=== PATIENT | male | born 1965 | race Caucasian/White ===

== ENCOUNTER → 2017-05-08 | Outpatient (CLI) | payer OTHER ==
[~2017-05-08] MED LIST: AMITRIPTYLINE H50 M1 PO; ASPIRIN E.C. 8181 MG PO; B-12 100 MCG PO; CRESTOR 10MG10 MG PO; FIORICET 325 MG1 TA1 PO; FLEXERIL 1010 MG/TAB PO; FLEXERIL10 MG PO; INDERAL 10MG10 MG PO; LIPITOR 10MG10 MG PO; MULTIPLE VITAMI1 CAP PO; NO HOME MEDICATIONS; NORCO 325 MG-51 TAB PO; NORCO 325 MG-7.1 TAB PO; PLAVIX 75MG TAB75 MG PO; PREDNISONE20 MG PO
== END ==
LOC: BHSO 13:45
DX: F41.1 Generalized anxiety disorder (principal)

== ENCOUNTER → 2017-06-13 | Outpatient (CLI) | payer OTHER | LOC: BHSO 15:10 | DX: F41.1 Generalized anxiety disorder (principal) | CPT/HCPCS: G0463 ==

== ENCOUNTER → 2017-08-10 | Outpatient (CLI) | payer OTHER | LOC: BHSO 14:35 | DX: F43.10 Post-traumatic stress disorder, unspecified (principal) | CPT/HCPCS: G0463 ==